=== PATIENT | female | born 1950 | race Asian ===

== ENCOUNTER 2023-12-22 21:16 | Emergency (ER) | payer MEDICARE ==
[~2023-12-22] VITALS: Ht 154.9 cm; Wt 57.2 kg
[2023-12-22 22:11] LABS: BASOPHILS # (AUTO) 0.1 K/UL (0.0-0.2); BASOPHILS % (AUTO) 0.7 % (0.0-2.0); EOSINOPHILS # (AUTO) 0.2 K/uL (0.0-0.7); EOSINOPHILS % (AUTO) 2.7 % (0.0-7.0); HEMATOCRIT 39.9 % (31.2-41.9); HEMOGLOBIN 13.4 g/dL (10.9-14.3); LYMPHOCYTES # (AUTO) 1.4 K/uL (0.8-4.8); LYMPHOCYTES % (AUTO) 15.5 % (20.5-51.5); MEAN CORPUSCULAR HEMOGLOBIN 31.9 uug (24.7-32.8); MEAN CORPUSCULAR HGB CONC 34 g/dL (32.3-35.6); MEAN CORPUSCULAR VOLUME 94.9 fL (75.5-95.3); MONOCYTES # (AUTO) 0.6 K/uL (0.1-1.30); MONOCYTES % (AUTO) 6.6 % (0.0-11.0); NEUTROPHILS # (AUTO) 6.6 K/uL (1.8-8.9); NEUTROPHILS % (AUTO) 74.5 % (38.5-71.5); PLATELET COUNT (AUTO) 241 K/uL (179-408); RED CELL DISTRIBUTION WIDTH 13.4 % (12.3-17.7); WHITE BLOOD COUNT (AUTO) 8.9 K/uL (3.8-11.8)
[2023-12-22 22:18] LABS: DIFFERENTIAL COMMENT 1
[2023-12-22 22:19] LABS: CALCIUM 9.6 mg/dL (8.5-10.1); CARBON DIOXIDE 25 mmol/L (21-32); CHLORIDE 107 mmol/L (98-107); GLUCOSE 107 mg/dL (74-106); POTASSIUM 3.6 mmol/L (3.5-5.1); SODIUM SERUM 143 mmol/L (136-145); UREA NITROGEN, BLOOD 19 mg/dL (7-18)
[2023-12-22 22:26] LABS: ALANINE AMINOTRANSFERASE 29 U/L (14-59); ALBUMIN 3.6 g/dL (3.4-5.0); ALKALINE PHOSPHATASE 74 U/L (50-136); ASPARTATE AMINOTRANSFERASE 13 U/L (15-37); BILIRUBIN,DIRECT 0.1 mg/dL (0.0-0.2); BILIRUBIN,TOTAL 0.3 mg/dL (0.2-1.0); LIPASE 96 U/L (16-77); TOTAL PROTEIN, SERUM 7.4 g/dL (6.4-8.2)
[2023-12-22] MEDS ORDERED: IV NORMAL SALINE 250 ML IV ONE (22:40)
[2023-12-22] MEDS ORDERED: IOHEXOL 350 100 ML INFUS..BTL ONE (22:40)
[2023-12-22] MEDS ORDERED: SWABABLE VALVE TRANSFER SET EA MC ONE (22:41)
[2023-12-22] MEDS: IV NORMAL SALINE 500 ML BAG IV ONE (22:57)
[2023-12-23 00:22] VITALS: BP 151/85; TEMP 97.9; O2SAT 98
== END 2023-12-23 00:22 | disposition home or self-care (01) ==
LOC: ER 21:20
DX: K62.5 Hemorrhage of anus and rectum (principal); R10.9 Unspecified abdominal pain; R03.0 Elevated blood-pressure reading, without diagnosis of hypertension
CPT/HCPCS: 99285; 74174; 80076; 80048; 83690; 85025; 85730; 86850; 86900; 86901; 36415; Q9967; A4606; A4663